=== PATIENT | female | born 1985 | race Caucasian/White ===

== ENCOUNTER 2021-12-07 08:43 | Emergency (ER) | payer MEDICAID ==
[2021-12-07] MEDS ORDERED: Terbutaline 1 MG/ML SDV SUBCUT ONE (08:44)
[2021-12-07] MEDS ORDERED: Magnesium Sulfate/Water 4 GM in Premix Bag 1 BAG IV ONE (08:44)
[2021-12-07] MEDS ORDERED: Sodium Chloride 0.9% 1,000 ML IV SCH (08:45)
== END 2021-12-07 08:45 ==
LOC: FB.ED 08:43
DX: O75.82 Onset (spontaneous) of labor after 37 completed weeks of gestation but before 39 completed weeks gestation, with delivery by (planned) cesarean section (principal); F19.90 Other psychoactive substance use, unspecified, uncomplicated; Z3A.00 Weeks of gestation of pregnancy not specified
CPT/HCPCS: 99284; 99285-25; J7030